=== PATIENT | male | born 1935 | race Two or more races ===

== ENCOUNTER 2019-01-23 12:12 | Emergency (ER) | payer OTHER ==
[2019-01-23] MEDS ORDERED: SODIUM BICARBONATE 8.4 % INJ 50ML VIAL IV ONE (12:18)
== END 2019-01-23 16:35 | disposition expired ==
LOC: ER 12:18
DX: I46.9 Cardiac arrest, cause unspecified (principal); E11.9 Type 2 diabetes mellitus without complications; I25.2 Old myocardial infarction; Z86.73 Personal history of transient ischemic attack (TIA), and cerebral infarction without residual deficits
CPT/HCPCS: 92950; 94761; 99291